=== PATIENT | female | born 1935 | race African-American/Black ===

== ENCOUNTER 2018-11-20 18:46 | Emergency (ER) | payer OTHER ==
--- NOTE | 2018-11-20 19:31 | PDOC ---
Rapid Medical Evaluation Chief Complaint: Injury Time Seen by Provider: 11/20/18 19:28 Medical Evaluation: 11/20/18 19:28 83 year slipped off the wheel chair and hit the buttocks area. c/o tailbone pain. PE: patient alert patient is wheel chair bound. A: back pain P: xray Discharge Disposition - Diagnosis Back pain Qualifiers: Back pain location: low back pain Chronicity: acute Back pain laterality: unspecified Sciatica presence: unspecified whether sciatica present Qualified Code(s): M54.5 - Low back pain - Referrals - Patient Instructions - Post Discharge Activity
[2018-11-20 19:36] VITALS: TEMP 98.8; BMI 27.4
--- NOTE | 2018-11-20 19:58 | PDOC ---
History of Present Illness - General Chief Complaint: Injury Stated Complaint: FALL Time Seen by Provider: 11/20/18 19:28 History Source: Patient, Family Exam Limitations: No Limitations - History of Present Illness Initial Comments: 83 year old female with PMH HTN, HLD, chronic arthritis presented to ED for sacral pain s/p mechanical fall from wheelchair around 1000 today. Pt reported she was attempting to sit down in a wheelchair, but it was not locked, and this caused her to fall to the ground, landing on her bottom. PT admitted to left knee pain, stating she has chronic arthritis, but feels it is more painful since the fall. Pt denied head injury, LOC, vomiting, neck pain, back pain, upper extremity pain, hip pain. She denied chest pain, shortness of breath, palpitations, dizziness, lightheadedness prior to fall. Pt reported she stopped taking her BP medications (Lisinopril 40 mg PO daily, Norvasc 10 mg PO daily) because she felt it was causing her headaches and generalized weakness. Pt reported she took 1 pill of Aleve around 1030 with improvement of symptoms. ROS General: denied fever, chills, generalized weakness. HEENT: denied sore throat, rhinorrhea, ear pain. Cardiovascular: denied chest pain, palpitations, syncope, diaphoresis. Respiratory: denied shortness of breath, cough, sputum production, hemoptysis. Gastrointestinal: denied abdominal pain, nausea, vomiting, diarrhea, constipation, blood in stool. Genitourinary: denied dysuria, increased urinary frequency, hematuria, urinary incontinence, flank pain. Back: denied back pain. Sacral: admitted to sacral pain. Musculoskeletal: admitted to knee pain. denied muscle pain. Neurological: denied headache, dizziness, numbness, tingling, weakness. Integumentary: denied rash, laceration, abrasion. Hematologic/Lymphatic: denied bruising or bleeding. PE Constitutional: Well-nourished, Well-developed, appearing stated age. HEENT: head is normocephalic, atraumatic. EOMI. PERRLA. Neck: supple. Full ROM. no midline c-spine tenderness to palpation. no step offs. Cardiovascular: regular heart rhythm. no murmurs. no pericardial friction rub. Respiratory: clear to auscultation bilaterally. no crackles, rhonchi or wheezing. no stridor. Back: no midline T-spine or L-spine tenderness to palpation. no step offs. no ecchymoses to back. no low back tenderness. Left knee: tenderness to palpation of knee. mild swelling. Hips: LE equal in length, no external rotation. no tenderness to palpation of hips. Sacrum: no tenderness to palpation. no overlying ecchymoses. Gastrointestinal: soft, nontender. normal bowel sounds. no rebound, guarding, masses. Extremities: peripheral pulses intact. no lower extremity edema. Neurological: CN 2-12 grossly intact. moves all four extremities. Psych: awake, alert, oriented x3. follows commands. answers questions appropriately. Past History - Past Medical History Allergies/Adverse Reactions: Allergies Allergy/AdvReac Type Severity Reaction Status Date / Time No Known Allergies Allergy Verified 11/20/18 19:36 Cardiac Disorders: Yes COPD: No HTN: Yes Hypercholesterolemia: Yes Thyroid Disease: Yes - Suicide/Smoking/Psychosocial Hx Smoking History: Never smoked Have you smoked in the past 12 months: No Information on smoking cessation initiated: No Hx Alcohol Use: No Drug/Substance Use Hx: No *Physical Exam - Vital Signs Last Vital Signs Temp Pulse Resp BP Pulse Ox 98.8 F 93 H 17 220/102 H 100 11/20/18 19:29 11/20/18 19:29 11/20/18 19:29 11/20/18 19:29 11/20/18 19:29 ED Treatment Course - LABORATORY CBC & Chemistry Diagram: 11/20/18 20:29 11/20/18 20:29 Medical Decision Making - Medical Decision Making 83 year old female with above PMH presented to ED for sacral pain s/p mechanical fall onto bottom from wheelchair. Initial Vital Signs Temp Pulse Resp BP Pulse Ox 98.8 F 93 H 17 220/102 H 100 11/20/18 19:29 11/20/18 19:29 11/20/18 19:29 11/20/18 19:29 11/20/18 19:29 Afebrile. No tachycardia. No tachypnea. Hypertensive. No hypoxia on room air. Labs ordered: CBC, CMP, troponin Imaging ordered: Pelvis XR, Sacrum XR, lumbar spine XR, CXR, left knee XR Medications ordered: tylenol 975 mg PO once, amlodipine 10 mg PO once EKG performed at 2053: rate 86, regular rhythm, normal axis, normal intervals, no acute ST changes. 11/20/18 20:49 CBC WBC 7.6 K/mm3 (4.0-10.0) 11/20/18 20: RBC 4.18 M/mm3 (3.60-5.2) 11/20/18 20: Hgb 12.3 GM/dL (10.7-15.3) 11/20/18 20: Hct 38.1 % (32.4-45.2) 11/20/18 20: MCV 91.1 fl (80-96) 11/20/18 20: MCH 29.5 pg (25.7-33.7) 11/20/18: MCHC 32.3 g/dl (32.0-36.0) 11/20/18: RDW 15.1 % (11.6-15.6) 11/20/18: Plt Count 215 K/MM3 (134-434) 11/20/18: MPV 9.0 fl (7.5-11.1) 11/20/18 20: Absolute Neuts (auto) 5.1 K/mm3 (1.5-8.0) 11/20/18 20: Neutrophils % 66.3 % (42.8-82.8) 11/20/18: Lymphocytes % 22.3 % (8-40) 11/20/18: Monocytes % 7.9 % (3.8-10.2) 11/20/18: Eosinophils % 2.7 % (0-4.5) 11/20/18: Basophils % 0.8 % (0-2.0) 11/20/18: Nucleated RBC % 0 % (0-0) 11/20/18: No leukocytosis. No anemia. 11/20/18 21:20 CMP Sodium 141 mmol/L (136-145) 11/20/18 20: Potassium 4.0 mmol/L (3.5-5.1) 11/20/18 20: Chloride 106 mmol/L (98-107) 11/20/18 20: Carbon Dioxide 31 mmol/L (21-32) 11/20/18 20: Anion Gap 4 MMOL/L (8-16) L 11/20/18 20:29 BUN 24.5 mg/dL (7-18) H 11/20/18 20:29 Creatinine 1.2 mg/dL (0.55-1.3) 11/20/18 20:29 Est GFR (CKD-EPI)AfAm 49.08 11/20/18 20:29 Est GFR (CKD-EPI)NonAf 42.35 11/20/18 20:29 Random Glucose 86 mg/dL (74-106) 11/20/18 20:29 Calcium 11.3 mg/dL (8.5-10.1) H 11/20/18 20:29 Total Bilirubin 0.6 mg/dL (0.2-1) 11/20/18 20:29 AST 14 U/L (15-37) L 11/20/18 20:29 ALT 20 U/L (13-61) 11/20/18 20:29 Alkaline Phosphatase 94 U/L (45-117) 11/20/18 20:29 Troponin I < 0.02 ng/ml (0.00-0.05) 11/20/18 20:39 Total Protein 7.6 g/dl (6.4-8.2) 11/20/18 20:29 Albumin 3.5 g/dl (3.4-5.0) 11/20/18 20:29 No electrolyte abnormalities. Pre-renal dehydration. Troponin undetectable. Hypercalcemia -Medications ordered: 0.45% normal saline bolus Vital Signs Temperature 98.8 F 11/20/18 19:29 Pulse Rate 93 H 11/20/18 19:29 Respiratory Rate 17 11/20/18 19:29 Blood Pressure 176/87 H 11/20/18 21:15 O2 Sat by Pulse Oximetry (%) 100 11/20/18 19:29 HTN improving. 11/20/18 22:49 XRs show no acute fracture/dislocation by my and Dr. Franks's read. -Pending official reports 11/21/18 00:00 Pt ambulatory with light assistance (baseline ambulates with walker). Reported improvement of symptoms, requesting discharge. Dispo: Discharged 11/22/18 07:52 Follow up: CXR report: Name: [facility] DEPARTMENT OF RADIOLOGY Phys: Mahsa Malagon RESIDENT : 1935 Age: 83 Sex: F [facility] Acct: [id number] Loc: [facility] [address] [place] [address] Exam Date: 11/20/18 Status: [place] [id number] Unit Number: [id number] EXAM#: TYPE/EXAM: RESULT: RAD/CHEST PA LAT Chest: Fell off wheelchair There are no prior studies for comparison. There is a weak inspiration with large heart, sclerotic unfolded aorta, prominent left hilum and clear lung callejas. The ends are sharp. The bones and soft tissues are intact. An acute process is not seen. If symptoms persist, further imaging may be of help. Reported By: Kurt Machado MD 11/21/1805 Knee XR report: Name: [facility] DEPARTMENT OF RADIOLOGY Phys: Mahsa Malagon RESIDENT : 1935 Age: 83 Sex: F [facility] Acct: [id number] Loc: [address] Exam Date: 11/20/18 Status: [facility] [place] [address] Unit Number: [id number] EXAM#: TYPE/EXAM: RESULT: RAD/KNEE 3 POS-LEFT Left knee: Fall. Pain. 3 Views of the left knee have been submitted. There is no sign of a gross fracture or subluxation. There is loss of bone density with degenerative changes and vascular calcifications. There is vacuum phenomena seen in the knee joint in the medial compartment. Swelling, foreign body or soft tissue air is not seen. If symptoms persist, further imaging may be of help. Reported By: Kurt Machado MD 11/21/18 0729 Lumbar spine XR report: Name: [facility] DEPARTMENT OF RADIOLOGY Phys: Mahsa Malagon RESIDENT : 1935 Age: 83 Sex: F [facility] Acct: [id number] Loc: [address] Exam Date: 11/20/18 Status: [place] [id number] Unit Number: [id number] EXAM#: TYPE/EXAM: RESULT: [id number] RAD/SPINE-LUMBAR SACRAL LS Spine: Fall. Pain. 3 views of the spine have been submitted. The AP view shows 5 lumbar type vertebral bodies with scoliosis, degenerative changes, pain and SI joints and intact paraspinal soft tissues with vascular calcifications. Lateral and spot lateral view shows straightening with degenerative changes but no sign of fracture and no sign of blastic or lytic changes. There is vacuum phenomena, vascular calcifications and what appears to be a slight forward subluxation of L5 on S1. For more complete evaluation, further imaging with CT may be of help. Reported By: Kurt Machado MD 11/21/18 0745 *DC/Admit/Observation/Transfer Diagnosis at time of Disposition: Hypertensive urgency, Noncompliance with medication regimen, Hypercalcemia, Fall - Discharge Dispostion Disposition: HOME Condition at time of disposition: Stable Decision to Admit order: No - Referrals - Patient Instructions Printed Discharge Instructions: DI for High Blood Pressure, DI for Hypercalcemia, How to Prevent Falls Additional Instructions: TAKE ALL MEDICATIONS YOU ARE PRESCRIBED. CONSULT YOUR DOCTOR BEFORE STOPPING THEM. Drink lots of fluid. Your calcium was high. Have this number repeated by your primary care doctor within 7 days. Your blood work was otherwise normal. Your X-rays were normal, there was no fracture. Take Tylenol over the counter for pain. Take as advised on label. Apply a heating pad and ice pack alternatively every 20 minutes for pain as needed. Do 20 minutes on and 20 minutes off. Follow up with your primary care doctor within 3 days. Your care is not complete until you follow up. Return to the Emergency Department for increasing headache, chest pain, shortness of breath, vomiting, loss of consciousness, change in behavior, change in vision or speech, shortness of breath, lightheadedness or any other new, worsening or concerning symptoms. - Post Discharge Activity
[2018-11-20] MEDS ORDERED: ACETAMINOPHEN 325 MG TABLET (FP) PO ONE (19:59)
[2018-11-20] MEDS ORDERED: amLODIPine BESYLATE 10 MG TABLET (FP) PO ONE (20:12)
[2018-11-20 20:42] LABS: BASO % 0.8 % (0-2.0); EOS % 2.7 % (0-4.5); HEMATOCRIT 38.1 % (32.4-45.2); HEMOGLOBIN 12.3 GM/dL (10.7-15.3); LYMPH % 22.3 % (8-40); MCH 29.5 pg (25.7-33.7); MCHC 32.3 g/dl (32.0-36.0); MEAN CELL VOLUME 91.1 fl (80-96); MONO % 7.9 % (3.8-10.2); NEUT % 66.3 % (42.8-82.8); PLATELET COUNT 215 K/MM3 (134-434); RBC 4.18 M/mm3 (3.60-5.2); RDW 15.1 % (11.6-15.6); WHITE BLOOD COUNT 7.6 K/mm3 (4.0-10.0)
--- NOTE | 2018-11-20 20:42 | PDOC ---
Attending Attestation - Resident Resident Name: Mahsa Malagon - ED Attending Attestation I have performed the following: I have examined & evaluated the patient, The case was reviewed & discussed with the resident, I agree w/resident's findings & plan, Exceptions are as noted - HPI HPI: 11/20/18 21:35 83yo female with hx of htn, hld with a mechanical fall today. States she was going to sit on her walker when it slipped out and she fell to the ground landing on her buttock. Pt states her granddaughter needed to help her get up. Denies head injury or loc. No anticoags. No cp/sob. No palpitations. States legs have felt weak since a cva years ago. Pt states L leg is always weaker. Pt is visiting from [facility]. Pt c/o low back pain. No hip pain. C/o L knee pain. FROM of LE. NO midline ttp in back, no stepoffs or deformities - Physicial Exam PE: 11/20/18 21:37 Gen: aaox3, nad heart: +s1s2 reg lungs: cta b/l abd: soft, nt/nd +bs ext: trace edema to feet b/l, pulses intact pedal and radial, 4/5 weakness to LLE, normal muscle strength UE, 5/5 muscle strength RLE, mild knee ttp, no redness, no erythema, no swelling neuro: cn ii-xii grossly intact, muscle strength as noted above, no new focal deficits, sensation intact neck/back: no midline c/t/l spine ttp, sacral ttp, no stepoffs or deformities - Medical Decision Making 11/20/18 21:39 a/p: 83yo female s/p mechanical fall -pt also stopped taking her bp meds 3 days ago -elevated bp today -denies jean, blurred vision, cp/sob -no new neuro deficits -mechanical fall- denies dizziness or near syncope -xrays of back, hips, knees -labs given elevated bp -ekg -will give norvasc in the ER for bp control 11/20/18 22:44 no acute fx seen on xrays - prelim readings labs reviewed pt has not been taking her calcitriol - mildly elevated calcium will redose here resident discussed importance of taking all meds as prescribed pt visiting from [facility] pt ambulatory in the ED 11/20/18 22:47 will give saline prior to dc 11/20/18 23:26 pt received ivf stable for dc to home Heart Score/ECG Review - ECG Intrepretation Comment:: 11/20/18 21:41 sinus at 86, nl axis, lvh, pvc, no acute st/t wave findings
[2018-11-20] MEDS ORDERED: ACETAMINOPHEN 325 MG TABLET (FP) ONE (20:43)
[2018-11-20] MEDS ORDERED: amLODIPine BESYLATE 5 MG TABLET (FP) ONE (20:43)
[2018-11-20 21:18] LABS: ALBUMIN 3.5 g/dl (3.4-5.0); BILIRUBIN,TOTAL 0.6 mg/dL (0.2-1); BLOOD UREA NITROGEN 24.5 mg/dL (7-18); CALCIUM 11.3 mg/dL (8.5-10.1); CREATININE 1.2 mg/dL (0.55-1.3); TOT PROT 7.6 g/dl (6.4-8.2)
[2018-11-20] MEDS ORDERED: SODIUM CHLORIDE 0.45% 1,000 ML IV SCH (23:00)
[2018-11-21] MEDS ORDERED: amLODIPine BESYLATE 10 MG TABLET (FP) PO ONE (00:07)
[2018-11-21] MEDS ORDERED: amLODIPine BESYLATE 5 MG TABLET (FP) ONE (00:08)
[2018-11-21 00:14] VITALS: PULSE 82
[2018-11-21 00:57] VITALS: BP 195/94
--- NOTE | 2018-11-21 14:03 | EKG ---
Test Reason : Blood Pressure : / mmHG Vent. Rate : 086 BPM Atrial Rate : 086 BPM P-R Int : 170 ms QRS Dur : 094 ms QT Int : 388 ms P-R-T Axes : 053 -01 064 degrees QTc Int : 464 ms POOR DATA QUALITY, INTERPRETATION MAY BE ADVERSELY AFFECTED SINUS RHYTHM WITH PREMATURE SUPRAVENTRICULAR COMPLEXES AND WITH OCCASIONAL PREMATURE VENTRICULAR COMPLEXES POSSIBLE LEFT ATRIAL ENLARGEMENT LEFT VENTRICULAR HYPERTROPHY ABNORMAL ECG NO PREVIOUS ECGS AVAILABLE Confirmed by LUCY RODRIGEZ MD ([id number]) on 11/21/2018 2:03:40 PM Referred By: Confirmed By:LUCY RODRIGEZ MD
== END 2018-11-21 00:56 | disposition home or self-care (01) ==
LOC: JER 18:46
DX: I16.0 Hypertensive urgency (principal); Z91.14 Patient's other noncompliance with medication regimen; E83.52 Hypercalcemia; W05.0XXA Fall from non-moving wheelchair, initial encounter; Y93.89 Activity, other specified; Y92.009 Unspecified place in unspecified non-institutional (private) residence as the place of occurrence of the external cause; E78.5 Hyperlipidemia, unspecified
CPT/HCPCS: 36415; 71046-TC-FY; 72100-TC-FY; 72170-TC-FY; 73562-TC-LT-FY; 80053; 84484; 85025; 93005; 93010; 99284-25

== ENCOUNTER 2020-06-29 11:54 | Emergency (ER) | payer OTHER ==
[2020-06-29 11:59] VITALS: BP 144/87; PULSE 84; TEMP 98.3; BMI 28.7
[2020-06-29] MEDS ORDERED: NAPROXEN 375 MG TABLET PO ONE (12:29)
== END 2020-06-29 13:40 | disposition home or self-care (01) ==
LOC: JERFT 11:54
DX: M15.0 Primary generalized (osteo)arthritis (principal)
CPT/HCPCS: 73562-TC-LT-FY; 99283-25

== ENCOUNTER 2020-08-05 09:37 | Emergency (ER) | payer OTHER ==
[2020-08-05 09:55] VITALS: BP 181/71; PULSE 70; TEMP 97.7; BMI 27.6
[2020-08-05] MEDS ORDERED: NAPROXEN 250 MG TABLET PO ONE (10:48)
== END 2020-08-05 11:30 | disposition home or self-care (01) ==
LOC: JER 09:37
DX: L03.113 Cellulitis of right upper limb (principal)
CPT/HCPCS: 73110-TC-RT-FY; 73130-TC-RT-FY; 99283-25

== ENCOUNTER 2020-08-06 00:40 | Emergency (ER) | payer OTHER ==
[2020-08-06 01:18] VITALS: BP 165/101; PULSE 86; TEMP 97.5; BMI 27.3
[2020-08-06] MEDS ORDERED: morphine CARPU-JECT 2 MG/1 ML DISP.SYRIN IVPUSH ONE (01:28)
[2020-08-06] MEDS ORDERED: ACETAMINOPHEN 500 MG TABLET (FP) PO ONE (01:29)
[2020-08-06] MEDS ORDERED: MORPHINE SULFATE 2 MG/ML VIAL ONE (01:58)
[2020-08-06] MEDS ORDERED: ACETAMINOPHEN 325 MG TABLET (FP) ONE (02:19)
[2020-08-06 02:23] LABS: BASO % 0.9 % (0-2.0); EOS % 2.2 % (0-4.5); HEMATOCRIT 35.4 % (32.4-45.2); HEMOGLOBIN 11.8 GM/dL (10.7-15.3); LYMPH % 20.1 % (8-40); MCH 29.3 pg (25.7-33.7); MCHC 33.3 g/dl (32.0-36.0); MEAN PLT VOLUME 9.2 fl (7.5-11.1); MONO % 10.3 % (3.8-10.2); NEUT % 66.5 % (42.8-82.8); PLATELET COUNT 224 K/MM3 (134-434); RBC 4.02 M/mm3 (3.60-5.2); RDW 15.7 % (11.6-15.6); WHITE BLOOD COUNT 6.2 K/mm3 (4.0-10.0)
[2020-08-06 02:44] LABS: CALCIUM 8.6 mg/dL (8.5-10.1)
[2020-08-06 02:45] LABS: ALBUMIN 3.5 g/dl (3.4-5.0); BLOOD UREA NITROGEN 24.6 mg/dL (7-18)
[2020-08-06 02:49] LABS: BILIRUBIN,TOTAL 0.7 mg/dL (0.2-1); TOT PROT 7.4 g/dl (6.4-8.2)
[2020-08-06 03:14] LABS: ERYTHROCYTE SEDIMENTATION RATE 67 mm/hr (0-30)
== END 2020-08-06 03:56 | disposition home or self-care (01) ==
LOC: JER 00:40
PROC: 3E033NZ Introduction of Analgesics, Hypnotics, Sedatives into Peripheral Vein, Percutaneous Approach (ICD-10-PCS; principal; 2020-08-06)
DX: M10.9 Gout, unspecified (principal)
CPT/HCPCS: 36415; 73200-TC-RT; 80053; 85025; 85651; 86140; 87040; 96374; 99285-25

== ENCOUNTER 2020-08-30 05:56 | Emergency (ER) | payer OTHER ==
[2020-08-30 06:04] VITALS: BMI 28.7
[2020-08-30 06:27] LABS: VENOUS O2 SATURATION 51.1 % (70-80); VENOUS PCO2 44.7 mmHg (38-52); VENOUS PH 7.373 (7.310-7.410)
[2020-08-30] MEDS ORDERED: FUROSEMIDE 40 MG/4 ML INJECTABLE VIAL IVPUSH ONE ×2 (06:30→06:45)
[2020-08-30] MEDS ORDERED: NITROGLYCERIN 2% OINTMENT - 1GM PACKET TD ONE ×2 (06:30→06:44)
[2020-08-30 06:43] LABS: BASO % 1.1 % (0-2.0); EOS % 3.1 % (0-4.5); HEMATOCRIT 35.1 % (32.4-45.2); HEMOGLOBIN 11.3 GM/dL (10.7-15.3); LYMPH % 30.9 % (8-40); MCH 28.3 pg (25.7-33.7); MCHC 32.2 g/dl (32.0-36.0); MEAN CELL VOLUME 87.8 fl (80-96); MEAN PLT VOLUME 8.7 fl (7.5-11.1); NEUT % 54.9 % (42.8-82.8); PLATELET COUNT 200 10^3/uL (134-434); RDW 15.3 % (11.6-15.6); WHITE BLOOD COUNT 4.4 K/mm3 (4.0-10.0)
[2020-08-30] MEDS ORDERED: FUROSEMIDE 40 MG/4 ML INJECTABLE VIAL ONE (06:44)
[2020-08-30] MEDS ORDERED: ACETAMINOPHEN 500 MG TABLET (FP) PO ONE (06:45)
[2020-08-30 06:52] LABS: CHLORIDE 111 mmol/L (98-107); SODIUM 144 mmol/L (136-145)
[2020-08-30 06:54] LABS: CALCIUM 8.5 mg/dL (8.5-10.1)
[2020-08-30 06:55] LABS: ALBUMIN 3.1 g/dl (3.4-5.0); ANION GAP 8 MMOL/L (8-16); BLOOD UREA NITROGEN 23.6 mg/dL (7-18); CO2 25 mmol/L (21-32); GLUCOSE,RANDOM 90 mg/dL (74-106)
[2020-08-30 06:56] LABS: MAGNESIUM 1.9 mg/dL (1.8-2.4)
[2020-08-30] MEDS ORDERED: ACETAMINOPHEN 325 MG TABLET (FP) ONE (06:56)
[2020-08-30 06:58] LABS: SGOT/AST 11 U/L (15-37); SGPT/ALT 12 U/L (13-61)
[2020-08-30 06:59] LABS: BILIRUBIN,TOTAL 0.6 mg/dL (0.2-1)
[2020-08-30 07:00] LABS: TOT PROT 7.1 g/dl (6.4-8.2)
[2020-08-30 07:01] LABS: ALK PHOS 90 U/L (45-117)
[2020-08-30 07:04] LABS: N-TERMINAL BNP 762.6 pg/ml (5-450)
[2020-08-30 08:52] LABS: EPI CELLS 14 /uL (0-25.1); HYALINE CASTS 0 /uL (0-3.1); URINE APPEARANCE CLEAR; URINE BACTERIA 220 /uL (0-1359); URINE BILIRUBIN NEGATIVE (NEGATIVE); URINE COLOR YELLOW; URINE GLUCOSE (UA) NEGATIVE (NEGATIVE); URINE KETONE NEGATIVE (NEGATIVE); URINE LEUK ESTERASE NEGATIVE (NEGATIVE); URINE NITRITE NEGATIVE (NEGATIVE); URINE PROTEIN 1+ (NEGATIVE); URINE RBC 7 /uL (0-23.9); URINE UROBILINOGEN 0.2 mg/dL (0.2-1.0); URINE WBC 4 /uL (0-25.8)
[2020-08-30 13:09] VITALS: BP 172/92; PULSE 82; TEMP 97.4
== END 2020-08-30 12:30 | disposition left against medical advice (07) ==
LOC: JER 05:56
PROC: 3E033GC Introduction of Other Therapeutic Substance into Peripheral Vein, Percutaneous Approach (ICD-10-PCS; principal; 2020-08-30)
DX: R06.02 Shortness of breath (principal); R07.9 Chest pain, unspecified; I16.1 Hypertensive emergency
CPT/HCPCS: 36415; 70450-TC; 71045-TC-FY; 80053; 81003; 82550; 82803; 83735; 83880; 84484; 85025; 85730; 87086; 93005; 93010; 96374; 99285-25; C9803; U0003; U0005